=== PATIENT | male | born 1990 | race Caucasian/White ===

== ENCOUNTER 2018-10-15 14:53 | Emergency (ER) | payer OTHER ==
[~2018-10-15] VITALS: Ht 182.9 cm; Wt 113.4 kg
[2018-10-15 14:58] VITALS: BP 136/87
--- NOTE | 2018-10-15 15:08 | NUR ---
PT AMB TO BED 11 WITH STEADY GAIT
--- NOTE | 2018-10-15 15:48 | NUR ---
PT LAYING IN BED COMFORTABLY. PT C/O TESTICULAR PAIN FOR THE PAST 1.5 YEARS. PAIN DESCRIBED SQUEEZING/SHARP/BURNING. NO DYSURIA. C/O BURNING DURING URINATION AFTER INTERCOURSE. PAIN 11/28. PT TOOK GABEPENTIN AT 1000. MEDHX: DENIES
[2018-10-15 16:05] LABS: BASOPHILS % (AUTO) 0.5 % (0.0-2.0); EOSINOPHILS # (AUTO) 0.2 K/uL (0-0.4); EOSINOPHILS % (AUTO) 3.2 % (0.0-4.0); HEMATOCRIT 45.1 % (36-52); HEMOGLOBIN 15.4 g/dL (12.0-18.0); LYMPHOCYTES # (AUTO) 1.5 K/uL (2.0-11.5); LYMPHOCYTES % (AUTO) 26.4 % (20.5-51.1); MEAN CORPUSCULAR HEMOGLOBIN 30 pg (27-31); MEAN CORPUSCULAR HGB CONC 34 g/dL (33-37); MEAN CORPUSCULAR VOLUME 86.2 fL (80-94); MONOCYTES # (AUTO) 0.6 K/uL (0.8-1.0); MONOCYTES % (AUTO) 10.2 % (1.7-9.3); NEUTROPHILS # (AUTO) 3.5 K/uL (1.8-7.7); NEUTROPHILS % (AUTO) 59.7 % (42.2-75.2); PLATELET COUNT (AUTO) 257 K/uL (140-450); RED BLOOD CELL COUNT(AUTO) 5.23 MIL/uL (4.20-6.10); RED CELL DISTRIBUTION WIDTH 13.6 % (11.6-13.7); WHITE BLOOD COUNT (AUTO) 5.8 K/uL (4.8-10.8)
[2018-10-15 16:19] LABS: ALBUMIN 3.8 g/dL (3.4-5.0); CARBON DIOXIDE 26.1 mmol/L (21-32); CREATININE 1.2 mg/dL (0.7-1.3); POTASSIUM 4.1 mmol/L (3.5-5.1); TOTAL BILIRUBIN 0.4 mg/dL (0.0-1.0)
[2018-10-15 16:20] LABS: APPEARANCE,URINE CLEAR (CLEAR); BILIRUBIN,URINE NEGATIVE (NEGATIVE); BLOOD, URINE NEGATIVE (NEGATIVE); COLOR,URINE YELLOW (YELLOW); LEUKOCYTE ESTERASE ,URINE NEGATIVE (NEGATIVE); NITRITE, URINE NEGATIVE (NEGATIVE); PH,URINE 7.5 (5.0-9.0); UGLUCOSE NEGATIVE (NEGATIVE)
--- NOTE | 2018-10-15 16:41 | NUR ---
PT SITTING COMFORTABLY IN BED. STATES HE IS FEELING A LITTLE BIT BETTER. PAIN 5/10 RIGHT NOW.
[2018-10-15 17:36] VITALS: BP 132/87
--- NOTE | 2018-10-15 17:37 | NUR ---
Patient discharged with v/s stable. Written and verbal after care instructions given and explained. Patient alert, oriented and verbalized understanding of instructions. Ambulatory with steady gait. All questions addressed prior to discharge. ID band removed. Patient advised to follow up with PMD. Rx of FLAGYL given. Patient educated on indication of medication including possible reaction and side effects. Opportunity to ask questions provided and answered.
[2018-10-17 06:08] LABS: CHLAMYDIA TRACHOMATIS AMP DNA Negative (Negative)
== END 2018-10-15 17:37 | disposition home or self-care (01) ==
LOC: MED 14:53
DX: N50.819 Testicular pain, unspecified (principal); R16.1 Splenomegaly, not elsewhere classified; Z87.440 Personal history of urinary (tract) infections
CPT/HCPCS: 36415; 76870; 80053; 81003; 85025; 87491; 99284; Q0092

== ENCOUNTER 2018-10-21 21:36 | Emergency (ER) | payer OTHER ==
[~2018-10-21] VITALS: Ht 182.9 cm; Wt 113.4 kg
[2018-10-21 21:55] VITALS: BP 131/83
[2018-10-22 00:09] VITALS: BP 131/83
== END 2018-10-22 00:10 | disposition home or self-care (01) ==
LOC: MED 21:36
DX: K59.00 Constipation, unspecified (principal); I10 Essential (primary) hypertension
CPT/HCPCS: 74018; 81002; 99283